=== PATIENT | female | born 1945 | race Two or more races ===

== ENCOUNTER 2020-06-03 15:43 | Inpatient (IN) | payer OTHER ==
[~2020-06-03] VITALS: Ht 157.5 cm; Wt 68.0 kg
[2020-06-13] MEDS ORDERED: VERELAN240 MG PO (11:22)
[2020-06-13] MEDS ORDERED: COZAAR50 MG PO (11:22)
[2020-06-13] MEDS ORDERED: ZYRTEC10 M3 PO (11:23)
[2020-06-13] MEDS ORDERED: LIPITOR20 MG PO (11:23)
[2020-06-13] MEDS ORDERED: SINGULAIR10 MG PO (11:23)
[2020-06-13] MEDS ORDERED: GABAPENTIN300 M2 PO (11:24)
[2020-06-13] MEDS ORDERED: FIORINAL 50-321 EACH PO (11:24)
[2020-06-13] MEDS ORDERED: PEPCID AC10 MG PO (11:24)
[2020-06-21] MEDS ORDERED: FAMOTIDINE20 MG PO (09:22)
[2020-06-21] MEDS ORDERED: LEVOCETIRIZINE D5 MG PO (09:22)
[2020-06-21] MEDS ORDERED: ATORVASTATIN CA10 MG PO (09:24)
[2020-06-23] MEDS ORDERED: INTESTINEX680 M1 PO (12:06)
== END 2020-06-23 12:52 | disposition home or self-care (01) | DRG 330 ==
LOC: O/R 06-20 06:04 → SURH 06-20 06:04 → RECOVERY 06-20 07:00 → SURH 06-20 10:55
PROVIDERS: ADMIT Surgery; ATTEND Surgery
PROC: 07BC4ZX Excision of Pelvis Lymphatic, Percutaneous Endoscopic Approach, Diagnostic (ICD-10-PCS; 2020-06-20)
PROC: 0DTF4ZZ Resection of Right Large Intestine, Percutaneous Endoscopic Approach (ICD-10-PCS; principal; 2020-06-20 07:00)
DX: C18.2 Malignant neoplasm of ascending colon (principal); F05 Delirium due to known physiological condition; I10 Essential (primary) hypertension; Z20.828 Contact with and (suspected) exposure to other viral communicable diseases